=== PATIENT | male | born 1980 | race American Indian/Alaskan Native ===

== ENCOUNTER 2016-06-05 13:55 | Inpatient (IN) | payer SELFPAY ==
[2016-06-05] MEDS ORDERED: NACL 0.9% 500 ML 500 ML IV ONE (15:03)
[2016-06-05 16:07] LABS: INR 1.02 (0.87-1.13)
[2016-06-05 16:17] LABS: Hematocrit 47.2 % (35.5-45.6); Mean Corpuscular HGB Conc 32 % (32-34); Mean Corpuscular Hemoglobin 29 pg (28-32); Mean Corpuscular Volume 92 fl (84-94); Platelet Count 186 K/mm3 (140-440); Red Blood Count 5.12 M/mm3 (3.65-5.03); Red Cell Distribution Width 14.5 % (13.2-15.2); White Blood Count 11.9 K/mm3 (4.5-11.0)
--- NOTE | 2016-06-05 16:19 | XRay Report ---
PA CHEST: Sepsis PA view of the chest demonstrates a normal mediastinal and cardiac contour with clear lungs and normal bony and soft tissue structures. IMPRESSION: Normal PA chest.
[2016-06-05 16:26] LABS: Basophils % (Auto) 0.4 % (0.0-1.8)
[2016-06-05 16:35] LABS: Alanine Aminotransferase 18 units/L (7-56); Albumin 4.2 g/dL (3.9-5); Albumin/Globulin Ratio 1.2 %; Alkaline Phosphatase 59 units/L (35-129); Anion Gap 20 mmol/L; Blood Urea Nitrogen 17 mg/dL (9-20); Calcium 9.5 mg/dL (8.4-10.2); Carbon Dioxide 24 mmol/L (22-30); Glucose 174 mg/dL (75-100); Potassium 3.9 mmol/L (3.6-5.0); Sodium 138 mmol/L (137-145); Total Protein 7.8 g/dL (6.3-8.2)
[2016-06-05 20:09] LABS: Urine Drugs of Abuse Note Disclamer
[2016-06-05 20:32] LABS: Bacteria,Urine 1+ /HPF (Negative); Bilirubin,Urine NEG (Negative); Blood,Urine LG (Negative); Ketones,Urine 20 mg/dL (Negative); Leukocyte Esterase,Urine NEG (Negative); Mucus,Urine 3+ /HPF; Nitrite,Urine NEG (Negative); Urobilinogen,Urine < 2.0 mg/dL (<2.0); WBC,Urine < 1.0 /HPF (0.0-6.0)
--- NOTE | 2016-06-05 20:49 | Emergency Department Report ---
ED Psych HPI - General Chief Complaint: Psych Stated Complaint: AMRIK EVDANYELL Time Seen by Provider: 06/05/16 19:38 Source: patient Mode of arrival: Ambulatory Limitations: No Limitations - History of Present Illness Initial Comments: 35-year-old male presents to the emergency Department with family for psychiatric evaluation. states the patient has been having hallucinations for the past 3 days. Patient states that he feels like people are being mixed with robots than he just doesn't feel right. states patient is afraid people are trying to take his body parts away. states the patient was seen at another emergency department approximate 5 days ago for a toothache. He was started on penicillin, Motrin, and Percocet at that time. His current symptoms began after taking the Percocet. She states she stopped giving him the Percocet, but his symptoms have persisted. She states that the patient has had a similar episode of these symptoms in the past after taking dicyclomine for abdominal pain. Symptoms persisted for approximately 4 days after this medication was stopped. Patient denies suicidal or homicidal thoughts. There are no other complaints. -: Gradual, days(s) (3) Associated Psychiatric Symptoms: delusions History of same: No Quality: constant Improves With: none Worsens With: none Associated Symptoms: denies other symptoms Treatments Prior to Arrival: none - Related Data Allergies Allergy/AdvReac Type Severity Reaction Status Date / Time tramadol Allergy Unknown Verified 06/05/16 14:52 ED Review of Systems ROS: Stated complaint: AMRIK BARRIGA Other details as noted in HPI Comment: All other systems reviewed and negative Psychiatric: as per HPI. denies: homicidal thoughts, suicidal thoughts ED Past Medical Hx - Past Medical History Previous Medical History?: No - Surgical History Past Surgical History?: No - Family History Family history: other (bipolar, schizophrenia) - Social History Smoking Status: Current Every Day Smoker Substance Use Type: Marijuana, Prescribed ED Physical Exam - General Limitations: No Limitations General appearance: alert, in no apparent distress - Head Head exam: Present: atraumatic, normocephalic - Eye Eye exam: Present: normal appearance, PERRL, EOMI - ENT ENT exam: Present: normal exam, normal orophraynx, mucous membranes moist - Neck Neck exam: Present: normal inspection, full ROM. Absent: tenderness - Respiratory Respiratory exam: Present: normal lung sounds bilaterally. Absent: respiratory distress - Cardiovascular Cardiovascular Exam: Present: regular rate, normal rhythm, normal heart sounds - GI/Abdominal GI/Abdominal exam: Present: soft, normal bowel sounds. Absent: distended, tenderness - Extremities Exam Extremities exam: Present: normal inspection, full ROM. Absent: tenderness - Back Exam Back exam: Present: normal inspection, full ROM. Absent: tenderness - Neurological Exam Neurological exam: Present: alert, oriented X3. Absent: motor sensory deficit - Psychiatric Psychiatric exam: Present: normal affect, anxious, other (active paranoid delusions noted). Absent: homicidal ideation, suicidal ideation - Skin Skin exam: Present: warm, dry, intact ED Course Vital Signs 06/05/16 06/05/16 14:52 19:36 Temperature 100.5 F H 98.9 F Pulse Rate 113 H 92 H Respiratory 20 16 Rate Blood Pressure 142/96 Blood Pressure 130/96 [Right] O2 Sat by Pulse 100 100 Oximetry ED Medical Decision Making - Lab Data Result diagrams: 06/05/16 15:08 06/05/16 15:08 - Medical Decision Making Lab results reviewed. Patient has been medically cleared. Form 1013 has been signed and placed on the patient's chart. Patient is awaiting mental health evaluation for placement. - Differential Diagnosis Paranoid schizophrenia, bipolar disorder, psychosis Critical care attestation.: If time is entered above; I have spent that time in minutes in the direct care of this critically ill patient, excluding procedure time. ED Disposition Clinical Impression: Acute psychosis Disposition: DC/TX PSY HOSP/PSY UNIT Is pt being admited?: No Condition: Stable Referrals: PRIMARY CARE, [Primary Care Provider] - 3-5 Days Time of Disposition: 20:54
[2016-06-06] MEDS ORDERED: ROCEPHIN/NS 1 GM/50 ML 1 GM/50 ML BAG IV ONE ×2 (10:58→11:00)
[2016-06-06] MEDS ORDERED: NACL 0.9% 1000 ML 1,000 ML IV ONE (11:01)
[2016-06-06 11:47] LABS: Basophils % (Auto) 0.2 % (0.0-1.8); Eosinophils % (Auto) 0.1 % (0.0-4.3); Hematocrit 43.8 % (35.5-45.6); Hemoglobin 14.5 gm/dl (11.8-15.2); Mean Corpuscular HGB Conc 33 % (32-34); Mean Corpuscular Hemoglobin 30 pg (28-32); Mean Corpuscular Volume 89 fl (84-94); Platelet Count 239 K/mm3 (140-440); Red Blood Count 4.91 M/mm3 (3.65-5.03); Red Cell Distribution Width 14.3 % (13.2-15.2); White Blood Count 13.2 K/mm3 (4.5-11.0)
[2016-06-06 11:58] LABS: Alanine Aminotransferase 17 units/L (7-56); Albumin 4.2 g/dL (3.9-5); Albumin/Globulin Ratio 1.3 %; Alkaline Phosphatase 56 units/L (35-129); Anion Gap 18 mmol/L; Blood Urea Nitrogen 23 mg/dL (9-20); Calcium 9.6 mg/dL (8.4-10.2); Carbon Dioxide 27 mmol/L (22-30); Chloride 98.6 mmol/L (98-107); Glucose 110 mg/dL (75-100); INR 1.07 (0.87-1.13); Potassium 3.8 mmol/L (3.6-5.0); Sodium 140 mmol/L (137-145); Total Protein 7.4 g/dL (6.3-8.2)
[2016-06-06 11:59] LABS: Partial Thromboplastin Time 33.6 Sec. (24.2-36.6)
--- NOTE | 2016-06-06 12:01 | Cat Scan Report ---
CT HEAD WITHOUT CONTRAST: HISTORY: Fever, sepsis. Serial contiguous axial images were obtained through the cranium. Intravenous contrast material was not administered. The ventricles are normal in size and appearance. There is no mass effect or midline shift. No areas of abnormally increased or decreased attenuation are seen. No mass lesion is seen. Mucous retention cyst or focal mucosal thickening is noted in the visualized maxillary sinuses. The remaining sinuses are clear. IMPRESSION: Cranial CT scan within normal limits.
[2016-06-06 12:03] LABS: Bilirubin,Direct < 0.2 mg/dL (0-0.2); Bilirubin,Indirect 0.4 mg/dL
[2016-06-06 12:05] LABS: Creatine Kinase MB 1.8 ng/mL (0.0-4.0)
--- NOTE | 2016-06-06 13:20 | History and Physical Report ---
History of Present Illness Chief complaint: confusion History of present illness: 35 YO Male with Nicotine Dependence, Bipolar, Schizophrenia presents to ED for evaluation. Pt unable to provide history. History taken from , and ED staff. Pt states the patient has been having hallucinations for the past 3 days. Patient feels like "people are being mixed with robots than he just doesn 't feel right." states patient is "afraid people are trying to take his body parts away". Pt denies reports of fever, chills, CP, Palpitatons, NVD , syncope, recent ill contacts, productive cough, skin rashes, head trauma, seizures, or vertigo. Past History Past Medical History: other (Nicotine Dependence, Bipolar, Schizophrenia) Past Surgical History: No surgical history, Other (reviewed) Social history: single, smoking. denies: alcohol abuse, prescription drug abuse , IV drug use Family history: no significant family history (reviewed) Medications and Allergies Allergies Allergy/AdvReac Type Severity Reaction Status Date / Time tramadol Allergy Unknown Verified 06/05/16 14:52 Review of Systems ROS unobtainable: due to mental status Exam - Constitutional Vitals: Temp Pulse Resp BP Pulse Ox 98.9 F 92 H 16 130/96 100 06/05/16 19:36 06/05/16 19:36 06/06/16 07:17 06/05/16 19:36 06/05/16 19:36 General appearance: Present: mild distress - EENT Eyes: Present: PERRL ENT: hearing intact, clear oral mucosa - Neck Neck: Present: supple, normal ROM - Respiratory Respiratory: bilateral: diminished - Cardiovascular Rhythm: regular Heart Sounds: Present: S1 & S2 - Extremities Extremities: no ischemia Peripheral Pulses: within normal limits - Abdominal General gastrointestinal: Present: soft, non-tender, non-distended Male genitourinary: Present: normal - Integumentary Integumentary: Present: clear, dry, decreased turgor - Musculoskeletal Musculoskeletal: generalized weakness - Psychiatric Psychiatric: no intact judgment & insight, no memory intact - Neurologic Neurologic: moves all extremities, no gait normal Results - Labs CBC & Chem 7: 06/06/16 11:12 06/06/16 11:12 Labs: Abnormal lab results 06/05/16 06/05/16 06/06/16 Range/Units 15:08 15:08 11:12 WBC 11.9 H 13.2 H (4.5-11.0) K/mm3 RBC 5.12 H (3.65-5.03) M/mm3 Hct 47.2 H (35.5-45.6) % [place] % (Auto) 9.2 H 8.9 H (0.0-7.3) % [place] # 1.1 H 1.2 H (0.0-0.8) K/mm3 Seg Neutrophils % 74.6 H 74.8 H (40.0-70.0) % Seg Neutrophils # 8.9 H 9.9 H (1.8-7.7) K/mm3 BUN (9-20) mg/dL Glucose 174 H (75-100) mg/dL Total Creatine Kinase (55-170) units/L Salicylates (2.8-20.0) mg/dL 06/06/16 06/06/16 06/06/16 Range/Units 11:12 11:12 11:12 WBC (4.5-11.0) K/mm3 RBC (3.65-5.03) M/mm3 Hct (35.5-45.6) % [place] % (Auto) (0.0-7.3) % [place] # (0.0-0.8) K/mm3 Seg Neutrophils % (40.0-70.0) % Seg Neutrophils # (1.8-7.7) K/mm3 BUN 23 H (9-20) mg/dL Glucose 110 H (75-100) mg/dL Total Creatine Kinase 310 H (55-170) units/L Salicylates < 0.3 L (2.8-20.0) mg/dL Assessment and Plan - Patient Problems (1) Sepsis Current Visit: Yes Status: Acute Qualifiers: Sepsis type: S Plan to address problem: IV abx, IVF, supportive care, monitor uop q shift, serial lactate, (2) Encephalopathy Current Visit: Yes Status: Acute Plan to address problem: IVF replacement, supportive care. (3) Psychosis Current Visit: Yes Status: Acute Qualifiers: Psychosis type: P Schizoaffective disorder type: S Schizophrenia type: S Plan to address problem: Pych consulted, (4) Nicotine dependence Current Visit: Yes Status: Acute Qualifiers: Nicotine product type: N Substance use status: S Plan to address problem: supportive care. (5) DVT prophylaxis Current Visit: Yes Status: Acute
[2016-06-06] MEDS ORDERED: TYLENOL PO PRN (13:23)
[2016-06-06] MEDS ORDERED: DUONEB 0.5 MG-3 MG/3 ML SOLN IH PRN (13:23)
[2016-06-06] MEDS ORDERED: DULCOLAX PR PRN (13:23)
[2016-06-06] MEDS ORDERED: MILK OF MAGNESIA PO PRN (13:23)
[2016-06-06] MEDS ORDERED: ZOFRAN IV PRN (13:23)
[2016-06-06] MEDS ORDERED: NACL 0.9% 1000 ML IV ONE (13:25)
--- NOTE | 2016-06-06 13:48 | Emergency Department Report ---
ED General Adult HPI - General Chief complaint: Psych Stated complaint: AMRIK BARRIGA Time Seen by Provider: 06/05/16 19:38 Source: patient Mode of arrival: Ambulatory Limitations: No Limitations - History of Present Illness Initial comments: I was asked by Dr. Brandon will have psychiatry to reevaluate this patient. There was concern as to whether he was medically appropriate for psychiatric admission. The patient I believe is actively psychotic. However he presented with fever and had a workup performed. I reviewed the workup and I really didn' t see anything particularly outstanding other than a mildly elevated white blood cell count with some neutrophilia. I do see the patient had a fever on presentation. I reviewed Dr. Redd's note. -: unknown Severity scale (0 -10): 0 - Related Data Allergies Allergy/AdvReac Type Severity Reaction Status Date / Time tramadol Allergy Unknown Verified 06/05/16 14:52 ED Review of Systems ROS: Stated complaint: AMRIK HERNANDEZAL Other details as noted in HPI Comment: Unobtainable due to pts medical conditions Psychiatric: as per HPI. denies: homicidal thoughts, suicidal thoughts ED Past Medical Hx - Past Medical History Previous Medical History?: No - Surgical History Past Surgical History?: No - Social History Smoking Status: Current Every Day Smoker Substance Use Type: Marijuana, Prescribed ED Physical Exam - General Limitations: Altered Mental Status General appearance: obtunded - Head Head exam: Present: atraumatic - Eye Eye exam: Present: other (the patient was rolling his eyes Voluntarily.) Pupils: Present: other (pupils are about mid position reactive and equal) - ENT ENT exam: Present: other (there appears to be purulent material at the nares) - Neck Neck exam: Present: normal inspection. Absent: tenderness, meningismus - Respiratory Respiratory exam: Present: normal lung sounds bilaterally. Absent: respiratory distress - Cardiovascular Cardiovascular Exam: Present: regular rate, normal rhythm. Absent: systolic murmur, diastolic murmur, rubs, gallop - GI/Abdominal GI/Abdominal exam: Present: soft, normal bowel sounds. Absent: distended, tenderness, guarding, rebound, rigid - Extremities Exam Extremities exam: Present: normal inspection - Back Exam Back exam: Present: normal inspection - Neurological Exam Neurological exam: Present: altered, other (no focal deficit on limited neurological exam) ED Course Vital Signs 06/05/16 06/05/16 06/06/16 14:52 19:36 07:17 Temperature 100.5 F H 98.9 F Pulse Rate 113 H 92 H Respiratory 20 16 16 Rate Blood Pressure 142/96 Blood Pressure 130/96 [Right] O2 Sat by Pulse 100 100 Oximetry - Reevaluation(s) Reevaluation #1: The patient was given 2 g of ceftriaxone empirically. A CT of the head was obtained which demonstrated findings consistent with maxillary sinusitis I believe. There was no other intracranial abnormality. Additional laboratory database was reviewed. 06/06/16 13:48 Reevaluation #2: I spoke with Dr. Camargo concerning any desire for further source of infection served. Repeat laboratory database does show an elevated white blood cell count but CRP was normal and no bands were seen. The anion gap remains normal. The patient had no evidence of lactic acidosis. Dr. Camargo decided to forego lumbar puncture as the indicators for serious or life-threatening infection appear to be negative. It is likely the patient's altered status is secondary to his acute psychosis. However, empiric antibiotics will be continued. 06/06/16 13:48 ED Medical Decision Making - Lab Data Result diagrams: 06/06/16 11:12 06/06/16 11:12 Laboratory Results - last 24 hr 06/05/16 06/05/16 06/05/16 15:08 15:08 15:08 WBC RBC Hgb Hct MCV MCH MCHC RDW Plt Count Lymph % (Auto) [place] % (Auto) Eos % (Auto) Baso % (Auto) Lymph # [place] # Eos # Baso # Seg Neutrophils % Seg Neutrophils # PT 13.3 INR 1.02 APTT VBG pH Sodium 138 Potassium 3.9 Chloride 98.0 Carbon Dioxide 24 Anion Gap 20 BUN 17 Creatinine 1.0 Estimated GFR > 60 BUN/Creatinine Ratio 17.00 Glucose 174 H Lactic Acid 1.5 Calcium 9.5 Magnesium Total Bilirubin 0.40 Direct Bilirubin Indirect Bilirubin AST 18 ALT 18 Alkaline Phosphatase 59 Ammonia Total Creatine Kinase CK-MB (CK-2) CK-MB (CK-2) Rel Index Troponin T C-Reactive Protein Total Protein 7.8 Albumin 4.2 Albumin/Globulin Ratio 1.2 Urine Color Urine Turbidity Urine pH Ur Specific [place] Urine Protein Urine Glucose (UA) Urine Ketones Urine Blood Urine Nitrite Urine Bilirubin Urine Urobilinogen Ur Leukocyte Esterase Urine WBC (Auto) Urine RBC (Auto) Urine Bacteria (Auto) Urine Mucus Salicylates Urine Opiates Screen Urine Methadone Screen Acetaminophen Ur Barbiturates Screen Ur Phencyclidine Scrn Ur Amphetamines Screen U Benzodiazepines Scrn Urine Cocaine Screen U Marijuana (THC) Screen Drugs of Abuse Note Plasma/Serum Alcohol 06/05/16 06/05/16 06/05/16 15:08 15:08 15:08 WBC 11.9 H RBC 5.12 H Hgb 15.0 Hct 47.2 H MCV 92 MCH 29 MCHC 32 RDW 14.5 Plt Count 186 Lymph % (Auto) 15.8 [place] % (Auto) 9.2 H Eos % (Auto) 0.0 Baso % (Auto) 0.4 Lymph # 1.9 [place] # 1.1 H Eos # 0.0 Baso # 0.1 Seg Neutrophils % 74.6 H Seg Neutrophils # 8.9 H PT INR APTT VBG pH 7.370 Sodium Potassium Chloride Carbon Dioxide Anion Gap BUN Creatinine Estimated GFR BUN/Creatinine Ratio Glucose Lactic Acid Calcium Magnesium Total Bilirubin Direct Bilirubin Indirect Bilirubin AST ALT Alkaline Phosphatase Ammonia Total Creatine Kinase CK-MB (CK-2) CK-MB (CK-2) Rel Index Troponin T C-Reactive Protein Total Protein Albumin Albumin/Globulin Ratio Urine Color Urine Turbidity Urine pH Ur Specific [place] Urine Protein Urine Glucose (UA) Urine Ketones Urine Blood Urine Nitrite Urine Bilirubin Urine Urobilinogen Ur Leukocyte Esterase Urine WBC (Auto) Urine RBC (Auto) Urine Bacteria (Auto) Urine Mucus Salicylates Urine Opiates Screen Urine Methadone Screen Acetaminophen Ur Barbiturates Screen Ur Phencyclidine Scrn Ur Amphetamines Screen U Benzodiazepines Scrn Urine Cocaine Screen U Marijuana (THC) Screen Drugs of Abuse Note Plasma/Serum Alcohol < 0.01 06/05/16 06/05/16 06/05/16 17:51 20:07 20:07 WBC RBC Hgb Hct MCV MCH MCHC RDW Plt Count Lymph % (Auto) [place] % (Auto) Eos % (Auto) Baso % (Auto) Lymph # [place] # Eos # Baso # Seg Neutrophils % Seg Neutrophils # PT INR APTT VBG pH Sodium Potassium Chloride Carbon Dioxide Anion Gap BUN Creatinine Estimated GFR BUN/Creatinine Ratio Glucose Lactic Acid 1.0 Calcium Magnesium Total Bilirubin Direct Bilirubin Indirect Bilirubin AST ALT Alkaline Phosphatase Ammonia Total Creatine Kinase CK-MB (CK-2) CK-MB (CK-2) Rel Index Troponin T C-Reactive Protein Total Protein Albumin Albumin/Globulin Ratio Urine Color Yellow Urine Turbidity Clear Urine pH 5.0 Ur Specific [place] 1.027 Urine Protein 30 mg/dl Urine Glucose (UA) Neg Urine Ketones 20 Urine Blood Lg Urine Nitrite Neg Urine Bilirubin Neg Urine Urobilinogen < 2.0 Ur Leukocyte Esterase Neg Urine WBC (Auto) < 1.0 Urine RBC (Auto) 4.0 Urine Bacteria (Auto) 1+ Urine Mucus 3+ Salicylates Urine Opiates Screen Presumptive negative Urine Methadone Screen Presumptive negative Acetaminophen Ur Barbiturates Screen Presumptive negative Ur Phencyclidine Scrn Presumptive negative Ur Amphetamines Screen Presumptive negative U Benzodiazepines Scrn Presumptive positive Urine Cocaine Screen Presumptive negative U Marijuana (THC) Screen Presumptive positive Drugs of Abuse Note Disclamer Plasma/Serum Alcohol 06/06/16 06/06/16 06/06/16 11:12 11:12 11:12 WBC 13.2 H RBC 4.91 Hgb 14.5 Hct 43.8 MCV 89 D MCH 30 MCHC 33 RDW 14.3 Plt Count 239 Lymph % (Auto) 16.0 [place] % (Auto) 8.9 H Eos % (Auto) 0.1 Baso % (Auto) 0.2 Lymph # 2.1 [place] # 1.2 H Eos # 0.0 Baso # 0.0 Seg Neutrophils % 74.8 H Seg Neutrophils # 9.9 H PT 13.8 INR 1.07 APTT 33.6 VBG pH Sodium 140 Potassium 3.8 Chloride 98.6 Carbon Dioxide 27 Anion Gap 18 BUN 23 H Creatinine 1.0 Estimated GFR > 60 BUN/Creatinine Ratio 23.00 Glucose 110 H Lactic Acid Calcium 9.6 Magnesium Total Bilirubin 0.60 Direct Bilirubin < 0.2 Indirect Bilirubin 0.4 AST 17 ALT 17 Alkaline Phosphatase 56 Ammonia Total Creatine Kinase CK-MB (CK-2) CK-MB (CK-2) Rel Index Troponin T < 0.010 C-Reactive Protein 0.60 Total Protein 7.4 Albumin 4.2 Albumin/Globulin Ratio 1.3 Urine Color Urine Turbidity Urine pH Ur Specific [place] Urine Protein Urine Glucose (UA) Urine Ketones Urine Blood Urine Nitrite Urine Bilirubin Urine Urobilinogen Ur Leukocyte Esterase Urine WBC (Auto) Urine RBC (Auto) Urine Bacteria (Auto) Urine Mucus Salicylates Urine Opiates Screen Urine Methadone Screen Acetaminophen Ur Barbiturates Screen Ur Phencyclidine Scrn Ur Amphetamines Screen U Benzodiazepines Scrn Urine Cocaine Screen U Marijuana (THC) Screen Drugs of Abuse Note Plasma/Serum Alcohol 06/06/16 06/06/16 06/06/16 11:12 11:12 11:12 WBC RBC Hgb Hct MCV MCH MCHC RDW Plt Count Lymph % (Auto) [place] % (Auto) Eos % (Auto) Baso % (Auto) Lymph # [place] # Eos # Baso # Seg Neutrophils % Seg Neutrophils # PT INR APTT VBG pH Sodium Potassium Chloride Carbon Dioxide Anion Gap BUN Creatinine Estimated GFR BUN/Creatinine Ratio Glucose Lactic Acid 1.1 Calcium Magnesium 2.10 Total Bilirubin Direct Bilirubin Indirect Bilirubin AST ALT Alkaline Phosphatase Ammonia Total Creatine Kinase 310 H CK-MB (CK-2) 1.8 CK-MB (CK-2) Rel Index 0.5 Troponin T C-Reactive Protein Total Protein Albumin Albumin/Globulin Ratio Urine Color Urine Turbidity Urine pH Ur Specific [place] Urine Protein Urine Glucose (UA) Urine Ketones Urine Blood Urine Nitrite Urine Bilirubin Urine Urobilinogen Ur Leukocyte Esterase Urine WBC (Auto) Urine RBC (Auto) Urine Bacteria (Auto) Urine Mucus Salicylates Urine Opiates Screen Urine Methadone Screen Acetaminophen Ur Barbiturates Screen Ur Phencyclidine Scrn Ur Amphetamines Screen U Benzodiazepines Scrn Urine Cocaine Screen U Marijuana (THC) Screen Drugs of Abuse Note Plasma/Serum Alcohol 06/06/16 06/06/16 06/06/16 11:12 11:12 11:12 WBC RBC Hgb Hct MCV MCH MCHC RDW Plt Count Lymph % (Auto) [place] % (Auto) Eos % (Auto) Baso % (Auto) Lymph # [place] # Eos # Baso # Seg Neutrophils % Seg Neutrophils # PT INR APTT VBG pH Sodium Potassium Chloride Carbon Dioxide Anion Gap BUN Creatinine Estimated GFR BUN/Creatinine Ratio Glucose Lactic Acid Calcium Magnesium Total Bilirubin Direct Bilirubin Indirect Bilirubin AST ALT Alkaline Phosphatase Ammonia 34.0 Total Creatine Kinase CK-MB (CK-2) CK-MB (CK-2) Rel Index Troponin T C-Reactive Protein Total Protein Albumin Albumin/Globulin Ratio Urine Color Urine Turbidity Urine pH Ur Specific [place] Urine Protein Urine Glucose (UA) Urine Ketones Urine Blood Urine Nitrite Urine Bilirubin Urine Urobilinogen Ur Leukocyte Esterase Urine WBC (Auto) Urine RBC (Auto) Urine Bacteria (Auto) Urine Mucus Salicylates < 0.3 L Urine Opiates Screen Urine Methadone Screen Acetaminophen < 15.0 Ur Barbiturates Screen Ur Phencyclidine Scrn Ur Amphetamines Screen U Benzodiazepines Scrn Urine Cocaine Screen U Marijuana (THC) Screen Drugs of Abuse Note Plasma/Serum Alcohol Critical Care Time: Yes Critical care time in (mins) excluding proc time.: 35 Critical care attestation.: If time is entered above; I have spent that time in minutes in the direct care of this critically ill patient, excluding procedure time. ED Disposition Clinical Impression: Febrile illness, acute, Acute psychosis Altered mental status Qualifiers: Altered mental status type: delirium Qualified Code(s): R41.0 - Disorientation , unspecified Acute sinusitis Qualifiers: Sinusitis location: maxillary Recurrence: not specified as recurrent Qualified Code(s): J01.00 - Acute maxillary sinusitis, unspecified Disposition: OP ADMITTED IP TO THIS HOSP Is pt being admited?: Yes Does the pt Need Aspirin: Yes Condition: Stable Referrals: PRIMARY CARE, [Primary Care Provider] - 3-5 Days Time of Disposition: 13:52
[2016-06-06] MEDS ORDERED: ASPIRIN PR ONE ×2 (13:52→19:39)
[2016-06-06] MEDS ORDERED: NACL 0.9% 1000 ML 1,000 ML IV SCH (14:00)
[2016-06-06] MEDS ORDERED: VANCOMYCIN PHARMACY TO DOSE IV SCH (14:00)
[2016-06-06] MEDS ORDERED: PROVENTIL IH PRN (14:00)
[2016-06-06] MEDS ORDERED: VANCOMYCIN VIAL 1,500 MG in NACL 0.9% 500 ML 500 ML IV ONE (14:00)
[2016-06-06] MEDS: ZOSYN/NS 4.5GM/100ML 4.5 GM/100 ML VIAL IV SCH (19:05)
[2016-06-06] MEDS ORDERED: ZOSYN/NS 4.5GM/100ML 4.5 GM/100 ML VIAL IV ONE (19:38)
[2016-06-06] MEDS ORDERED: LEVAQUIN 750MG/150ML 750 MG/150 ML BAG IV ONE (19:46)
[2016-06-06] MEDS: LEVAQUIN 750MG/150ML 750 MG/150 ML BAG IV SCH (20:00)
[2016-06-07] MEDS: ZOSYN/NS 4.5GM/100ML 4.5 GM/100 ML VIAL IV SCH ×4 (01:12→17:55)
--- NOTE | 2016-06-07 03:56 | Admit Criteria Form ---
Admission Criteria Documentation: SEPSIS and OTHER FEBRILE ILLNESS, W/O FOCAL INFECTION Clinical Indications for Admission to Inpatient Care ( Place 'X' for any and all applicable criteria): Admission is indicated for ANY ONE of the following (1)(2)(3)(4): [ ] I. Bacteremia [ ]II. Suspected or identified specific infection requiring hospitalization (eg, meningitis, endocarditis) [ ]III. Hemodynamic instability [ ]IV. Altered mental status [ ]V. Failure or unavailability of outpatient antimicrobial treatment [ ]. Hypoxemia [ ]VII. Seizures [ ]VIII. High-risk febrile neutropenia [ ]IX. Need for parenteral antibiotic in patient who is likely to abuse vascular access device (eg, injection drug user) [A](7) [ ]X. Temperature greater than 104.9 degrees F (40.5 degrees C) (oral) [ X]XI. Inpatient admission required rather than observation care because of ANY ONE of the following: [ ]1) Specific infection identified that is too severe for outpatient treatment or observation care trial [ ]2) Metabolic disorder (eg, hypoglycemia, hyperglycemia, metabolic acidosis) that is severe or persistent [ ]3) Temperature greater than 103.1 degrees F (39.5 degrees C) ( oral) that is not responsive to observation care treatment [ ]4) IV fluid to replace significant ongoing (eg, for over 24 hours) losses (> 3 L/m2 per day) [ ]5) Supplemental oxygen or respiratory treatments for over 24 hours that is performable only in acute inpatient setting [ ]6) Parenteral nutrition regimen need that must be implemented on inpatient basis [ ]7) Strict or protective (eg, laminar flow) isolation [X ]8) Other condition, treatment or monitoring requiring inpatient admission Extended stay beyond goal length of stay may be needed for(1)(3) [ ]a) Sepsis or septic shock(22) [ ]b) Positive blood cultures [ ]c) Insufficient oral intake [ ]d) High-risk febrile neutropenia(29)(30) [ ]e) Continued fever and clinical instability [ ]f) Clinically active comorbid illness (e.g,heart failure, renal failure , diabetes) The original [facility] [employer] content created by Jennifer Anand has been revised. The portions of the content which have been revised are identified through the use of italic text or in bold, and Jennifer Anand has neither reviewed nor approved the modified material. All other unmodified content is copyright [facility]. Please see references footnoted in the original [facility] edition 2016 Admission Criteria Met: Yes
[2016-06-07] MEDS: HABITROL TD SCH (09:46)
[2016-06-07] MEDS: LEVAQUIN 750MG/150ML 750 MG/150 ML BAG IV SCH (09:46)
--- NOTE | 2016-06-07 09:52 | Progress Note ---
Assessment and Plan Assessment and plan: Patient is a 35-year-old man with history of tobacco dependency, bipolar and schizophrenia who presents to emergency department with altered mental status. Patient was waiting for mental health evaluation but he was having fevers and elevated white blood cell count therefore he was admitted to the hospital for possible sepsis. There is a prior history of patient being giving antibiotics for a tooth infection 5 days ago at another emergency department. Chest x-ray is negative. CT head unremarkable. -Sepsis most likely due to oral abscess from tooth infection: continue antibiotics, IV antibiotics -Acute encephalopathy due to above -Nausea and vomiting: Nothing by mouth and check abdominal x-ray -Bipolar and schizophrenia by history, chronic and worsenin, will need inpatient psych at discharge History Interval history: Patient seen and examined. Follow up on altered mental status which is still present. Overnight uneventful. No cp, sob, +n/v. Imaging, old records, testing, labs, nursing notes reviewed. Hospitalist Physical - Physical exam Narrative exam: GEN: Ill-appearing toxic diaphoretic but no respiratory distress, awake eyes closed and not talking HEENT: NCAT, patient resists eye exam NECK: SUPPLE, NO THYROMEGALY, NO JVD, NO LAD CVS: Regular tachycardia NORMAL S1S2 LUNGS/CHEST: CTA B, NORMAL CHEST EXPANSION B, GOOD AIR ENTRY B ABD: SOFT NTND, GBS, NO REBOUND OR GUARDING EXT/SKIN: NO SIGNIFICANT EDEMA OR RASH MSK: FROM X 4 EXTREMITIES NEURO: CN 2-12 GROSSLY INTACT, NO new FOCAL DEFICITS PSY: Confused - Constitutional Vitals: Temp Pulse Resp BP Pulse Ox 100.4 F H 70 18 126/76 98 06/07/16 07:37 06/07/16 07:37 06/07/16 07:37 06/07/16 07:37 06/07/16 07:37 Results - Labs CBC & Chem 7: 06/06/16 11:12 06/06/16 11:12 Labs: Laboratory Last Values WBC 13.2 K/mm3 (4.5-11.0) H 06/06/16 11:12 RBC 4.91 M/mm3 (3.65-5.03) 06/06/16 11:12 Hgb 14.5 gm/dl (11.8-15.2) 06/06/16 11:12 Hct 43.8 % (35.5-45.6) 06/06/16 11:12 MCV 89 fl (84-94) D 06/06/16 11:12 MCH 30 pg (28-32) 06/06/16 11:12 MCHC 33 % (32-34) 06/06/16 11:12 RDW 14.3 % (13.2-15.2) 06/06/16 11:12 Plt Count 239 K/mm3 (140-440) 06/06/16 11:12 Lymph % (Auto) 16.0 % (13.4-35.0) 06/06/16 11:12 [place] % (Auto) 8.9 % (0.0-7.3) H 06/06/16 11:12 Eos % (Auto) 0.1 % (0.0-4.3) 06/06/16 11:12 Baso % (Auto) 0.2 % (0.0-1.8) 06/06/16 11:12 Lymph # 2.1 K/mm3 (1.2-5.4) 06/06/16 11:12 [place] # 1.2 K/mm3 (0.0-0.8) H 06/06/16 11:12 Eos # 0.0 K/mm3 (0.0-0.4) 06/06/16 11:12 Baso # 0.0 K/mm3 (0.0-0.1) 06/06/16 11:12 Seg Neutrophils % 74.8 % (40.0-70.0) H 06/06/16 11:12 Seg Neutrophils # 9.9 K/mm3 (1.8-7.7) H 06/06/16 11:12 PT 13.8 Sec. (12.2-14.9) 06/06/16 11:12 INR 1.07 (0.87-1.13) 06/06/16 11:12 APTT 33.6 Sec. (24.2-36.6) 06/06/16 11:12 VBG pH 7.370 (7.320-7.420) 06/05/16 15:08 Sodium 140 mmol/L (137-145) 06/06/16 11:12 Potassium 3.8 mmol/L (3.6-5.0) 06/06/16 11:12 Chloride 98.6 mmol/L (98-107) 06/06/16 11:12 Carbon Dioxide 27 mmol/L (22-30) 06/06/16 11:12 Anion Gap 18 mmol/L 06/06/16 11:12 BUN 23 mg/dL (9-20) H 06/06/16 11:12 Creatinine 1.0 mg/dL (0.8-1.5) 06/06/16 11:12 Estimated GFR > 60 ml/min 06/06/16 11:12 BUN/Creatinine Ratio 23.00 % 06/06/16 11:12 Glucose 110 mg/dL (75-100) H 06/06/16 11:12 POC Glucose 101 (70-105) 06/06/16 22:13 Lactic Acid 1.1 mmol/L (0.7-2.0) 06/06/16 11:12 Calcium 9.6 mg/dL (8.4-10.2) 06/06/16 11:12 Magnesium 2.10 mg/dL (1.7-2.3) 06/06/16 11:12 Total Bilirubin 0.60 mg/dL (0.1-1.2) 06/06/16 11:12 Direct Bilirubin < 0.2 mg/dL (0-0.2) 06/06/16 11:12 Indirect Bilirubin 0.4 mg/dL 06/06/16 11:12 AST 17 units/L (5-40) 06/06/16 11:12 ALT 17 units/L (7-56) 06/06/16 11:12 Alkaline Phosphatase 56 units/L (35-129) 06/06/16 11:12 Ammonia 34.0 umol/L (25-60) 06/06/16 11:12 Total Creatine Kinase 310 units/L (55-170) H 06/06/16 11:12 CK-MB (CK-2) 1.8 ng/mL (0.0-4.0) 06/06/16 11:12 CK-MB (CK-2) Rel Index 0.5 (0-4) 06/06/16 11:12 Troponin T < 0.010 ng/mL (0.00-0.029) 06/06/16 11:12 C-Reactive Protein 0.60 mg/dL (0.00-1.30) 06/06/16 11:12 Total Protein 7.4 g/dL (6.3-8.2) 06/06/16 11:12 Albumin 4.2 g/dL (3.9-5) 06/06/16 11:12 Albumin/Globulin Ratio 1.3 % 06/06/16 11:12 Urine Color Yellow (Yellow) 06/05/16 20:07 Urine Turbidity Clear (Clear) 06/05/16 20:07 Urine pH 5.0 (5.0-7.0) 06/05/16 20:07 Ur Specific [place] 1.027 (1.003-1.030) 06/05/16 20:07 Urine Protein 30 mg/dl mg/dL (Negative) 06/05/16 20:07 Urine Glucose (UA) Neg mg/dL (Negative) 06/05/16 20:07 Urine Ketones 20 mg/dL (Negative) 06/05/16 20:07 Urine Blood Lg (Negative) 06/05/16 20:07 Urine Nitrite Neg (Negative) 06/05/16 20:07 Urine Bilirubin Neg (Negative) 06/05/16 20:07 Urine Urobilinogen < 2.0 mg/dL (<2.0) 06/05/16 20:07 Ur Leukocyte Esterase Neg (Negative) 06/05/16 20:07 Urine WBC (Auto) < 1.0 /HPF (0.0-6.0) 06/05/16 20:07 Urine RBC (Auto) 4.0 /HPF (0.0-6.0) 06/05/16 20:07 Urine Bacteria (Auto) 1+ /HPF (Negative) 06/05/16 20:07 Urine Mucus 3+ /HPF 06/05/16 20:07 Salicylates < 0.3 mg/dL (2.8-20.0) L 06/06/16 11:12 Urine Opiates Screen Presumptive negative 06/05/16 20:07 Urine Methadone Screen Presumptive negative 06/05/16 20:07 Acetaminophen < 15.0 ug/mL (10.0-30.0) 06/06/16 11:12 Ur Barbiturates Screen Presumptive negative 06/05/16 20:07 Ur Phencyclidine Scrn Presumptive negative 06/05/16 20:07 Ur Amphetamines Screen Presumptive negative 06/05/16 20:07 U Benzodiazepines Scrn Presumptive positive 06/05/16 20:07 Urine Cocaine Screen Presumptive negative 06/05/16 20:07 U Marijuana (THC) Screen Presumptive positive 06/05/16 20:07 Drugs of Abuse Note Disclamer 06/05/16 20:07 Plasma/Serum Alcohol < 0.01 gm% (0-0.07) 06/05/16 15:08
[2016-06-07] MEDS ORDERED: ZOFRAN IV PRN (09:54)
--- NOTE | 2016-06-07 10:52 | XRay Report ---
KUB: 06/07/16 09:54:00 CLINICAL: Nausea and vomiting. FINDINGS: Normal bowel gas pattern. No distended bowel and no air-fluid levels. No mass or suspicious calcifications. No pneumoperitoneum. Moderate arthritis of the hips. IMPRESSION: Negative abdomen.
[2016-06-07] MEDS: VANCOMYCIN 1,250 MG in NACL 0.9% 250ML 250 ML IV SCH ×2 (12:22→17:55)
[2016-06-08] MEDS: ZOSYN/NS 4.5GM/100ML 4.5 GM/100 ML VIAL IV SCH ×4 (00:30→18:52)
[2016-06-08] MEDS: VANCOMYCIN 1,250 MG in NACL 0.9% 250ML 250 ML IV SCH ×2 (02:00→14:29)
[2016-06-08] MEDS: HABITROL TD SCH (10:04)
--- NOTE | 2016-06-08 14:55 | Progress Note ---
Assessment and Plan Assessment and plan: Patient is a 35-year-old man with history of tobacco dependency, bipolar and schizophrenia who presents to emergency department with altered mental status. Patient was waiting for mental health evaluation but he was having fevers and elevated white blood cell count therefore he was admitted to the hospital for possible sepsis. There is a prior history of patient being giving antibiotics for a tooth infection 5 days ago at another emergency department. Chest x-ray is negative. CT head unremarkable. -Sepsis most likely due to oral abscess from tooth infection: continue antibiotics, IV antibiotics, ivf -Acute encephalopathy due to above -Nausea and vomiting: Nothing by mouth and check abdominal x-ray -Bipolar and schizophrenia by history, chronic and worsenin, will need inpatient psych at discharge -DVT prophylaxis; add sq lovenox -Disposition: inpt psych once afebrile and culture resulted Blood culture +1/2 bottle, gp cocci in clusters, await final results, repeated blood culture today, continue iv vanc and iv zosyn Ordered am labs History Interval history: Patient seen and examined. Follow up on altered mental status which is still present. Overnight uneventful. No cp, sob, +n/v. Imaging, old records, testing, labs, nursing notes reviewed. and father at bedside. Hospitalist Physical - Physical exam Narrative exam: GEN: illappearing, not diaphoretic today, nad awake alert orientated x 2 HEENT: NCAT, patient resists eye exam NECK: SUPPLE, NO THYROMEGALY, NO JVD, NO LAD CVS: Regular tachycardia NORMAL S1S2 LUNGS/CHEST: CTA B, NORMAL CHEST EXPANSION B, GOOD AIR ENTRY B ABD: SOFT NTND, GBS, NO REBOUND OR GUARDING EXT/SKIN: NO SIGNIFICANT EDEMA OR RASH MSK: FROM X 4 EXTREMITIES NEURO: CN 2-12 GROSSLY INTACT, NO new FOCAL DEFICITS, resting and intention whole body chills PSY: anxious - Constitutional Vitals: Temp Pulse Resp BP Pulse Ox 100.8 F H 90 20 130/76 96 06/08/16 12:42 06/08/16 12:42 06/08/16 12:42 06/08/16 12:42 06/08/16 12:42 Results - Labs CBC & Chem 7: 06/06/16 11:12 06/06/16 11:12 Labs: Laboratory Last Values WBC 13.2 K/mm3 (4.5-11.0) H 06/06/16 11:12 RBC 4.91 M/mm3 (3.65-5.03) 06/06/16 11:12 Hgb 14.5 gm/dl (11.8-15.2) 06/06/16 11:12 Hct 43.8 % (35.5-45.6) 06/06/16 11:12 MCV 89 fl (84-94) D 06/06/16 11:12 MCH 30 pg (28-32) 06/06/16 11:12 MCHC 33 % (32-34) 06/06/16 11:12 RDW 14.3 % (13.2-15.2) 06/06/16 11:12 Plt Count 239 K/mm3 (140-440) 06/06/16 11:12 Lymph % (Auto) 16.0 % (13.4-35.0) 06/06/16 11:12 [place] % (Auto) 8.9 % (0.0-7.3) H 06/06/16 11:12 Eos % (Auto) 0.1 % (0.0-4.3) 06/06/16 11:12 Baso % (Auto) 0.2 % (0.0-1.8) 06/06/16 11:12 Lymph # 2.1 K/mm3 (1.2-5.4) 06/06/16 11:12 [place] # 1.2 K/mm3 (0.0-0.8) H 06/06/16 11:12 Eos # 0.0 K/mm3 (0.0-0.4) 06/06/16 11:12 Baso # 0.0 K/mm3 (0.0-0.1) 06/06/16 11:12 Seg Neutrophils % 74.8 % (40.0-70.0) H 06/06/16 11:12 Seg Neutrophils # 9.9 K/mm3 (1.8-7.7) H 06/06/16 11:12 PT 13.8 Sec. (12.2-14.9) 06/06/16 11:12 INR 1.07 (0.87-1.13) 06/06/16 11:12 APTT 33.6 Sec. (24.2-36.6) 06/06/16 11:12 VBG pH 7.370 (7.320-7.420) 06/05/16 15:08 Sodium 140 mmol/L (137-145) 06/06/16 11:12 Potassium 3.8 mmol/L (3.6-5.0) 06/06/16 11:12 Chloride 98.6 mmol/L (98-107) 06/06/16 11:12 Carbon Dioxide 27 mmol/L (22-30) 06/06/16 11:12 Anion Gap 18 mmol/L 06/06/16 11:12 BUN 23 mg/dL (9-20) H 06/06/16 11:12 Creatinine 1.0 mg/dL (0.8-1.5) 06/06/16 11:12 Estimated GFR > 60 ml/min 06/06/16 11:12 BUN/Creatinine Ratio 23.00 % 06/06/16 11:12 Glucose 110 mg/dL (75-100) H 06/06/16 11:12 POC Glucose 101 (70-105) 06/06/16 22:13 Lactic Acid 1.1 mmol/L (0.7-2.0) 06/06/16 11:12 Calcium 9.6 mg/dL (8.4-10.2) 06/06/16 11:12 Magnesium 2.10 mg/dL (1.7-2.3) 06/06/16 11:12 Total Bilirubin 0.60 mg/dL (0.1-1.2) 06/06/16 11:12 Direct Bilirubin < 0.2 mg/dL (0-0.2) 06/06/16 11:12 Indirect Bilirubin 0.4 mg/dL 06/06/16 11:12 AST 17 units/L (5-40) 06/06/16 11:12 ALT 17 units/L (7-56) 06/06/16 11:12 Alkaline Phosphatase 56 units/L (35-129) 06/06/16 11:12 Ammonia 34.0 umol/L (25-60) 06/06/16 11:12 Total Creatine Kinase 310 units/L (55-170) H 06/06/16 11:12 CK-MB (CK-2) 1.8 ng/mL (0.0-4.0) 06/06/16 11:12 CK-MB (CK-2) Rel Index 0.5 (0-4) 06/06/16 11:12 Troponin T < 0.010 ng/mL (0.00-0.029) 06/06/16 11:12 C-Reactive Protein 0.60 mg/dL (0.00-1.30) 06/06/16 11:12 Total Protein 7.4 g/dL (6.3-8.2) 06/06/16 11:12 Albumin 4.2 g/dL (3.9-5) 06/06/16 11:12 Albumin/Globulin Ratio 1.3 % 06/06/16 11:12 Urine Color Yellow (Yellow) 06/05/16 20:07 Urine Turbidity Clear (Clear) 06/05/16 20:07 Urine pH 5.0 (5.0-7.0) 06/05/16 20:07 Ur Specific [place] 1.027 (1.003-1.030) 06/05/16 20:07 Urine Protein 30 mg/dl mg/dL (Negative) 06/05/16 20:07 Urine Glucose (UA) Neg mg/dL (Negative) 06/05/16 20:07 Urine Ketones 20 mg/dL (Negative) 06/05/16 20:07 Urine Blood Lg (Negative) 06/05/16 20:07 Urine Nitrite Neg (Negative) 06/05/16 20:07 Urine Bilirubin Neg (Negative) 06/05/16 20:07 Urine Urobilinogen < 2.0 mg/dL (<2.0) 06/05/16 20:07 Ur Leukocyte Esterase Neg (Negative) 06/05/16 20:07 Urine WBC (Auto) < 1.0 /HPF (0.0-6.0) 06/05/16 20:07 Urine RBC (Auto) 4.0 /HPF (0.0-6.0) 06/05/16 20:07 Urine Bacteria (Auto) 1+ /HPF (Negative) 06/05/16 20:07 Urine Mucus 3+ /HPF 06/05/16 20:07 Vancomycin Trough 2.3 ug/mL (5.0-20.0) L 06/08/16 11:17 Salicylates < 0.3 mg/dL (2.8-20.0) L 06/06/16 11:12 Urine Opiates Screen Presumptive negative 06/05/16 20:07 Urine Methadone Screen Presumptive negative 06/05/16 20:07 Acetaminophen < 15.0 ug/mL (10.0-30.0) 06/06/16 11:12 Ur Barbiturates Screen Presumptive negative 06/05/16 20:07 Ur Phencyclidine Scrn Presumptive negative 06/05/16 20:07 Ur Amphetamines Screen Presumptive negative 06/05/16 20:07 U Benzodiazepines Scrn Presumptive positive 06/05/16 20:07 Urine Cocaine Screen Presumptive negative 06/05/16 20:07 U Marijuana (THC) Screen Presumptive positive 06/05/16 20:07 Drugs of Abuse Note Disclamer 06/05/16 20:07 Plasma/Serum Alcohol < 0.01 gm% (0-0.07) 06/05/16 15:08
--- NOTE | 2016-06-08 18:32 | Consultation ---
History of Present Illness - Reason for Consult Consult date: 06/08/16 Reason for consult: Mental Health Evaluation Requesting physician: BUSHRA IYER - Chief Complaint Chief complaint: "My tooth feel better" - History of Present Psychiatric Illness 35-year-old male presents to the emergency Department with family for psychiatric evaluation. His girlfriend states the patient has been having hallucinations for the past 3 days. Today patient is calm and cooperative during assessment. He stated along with his girlfriend that his tooth has been giving him problems for a year. Per his girlfriend, patient was hearing voices and talking to the wall at their home before his admission to [facility]. His medical diagnosis was sepsis once he was admitted. After receiving IV antibiotic treatment, patient presentation improved per his girlfriend. He denies SI/HI's, AVH's, depression, sleep disturbance or a poor appetite. Medications and Allergies Allergies Allergy/AdvReac Type Severity Reaction Status Date / Time dyclonine Allergy Unknown Verified 06/07/16 06:38 tramadol Allergy Unknown Verified 06/05/16 14:52 Home Medications Medication Instructions Recorded Confirmed Last Taken Type No Known Home Medications [No 06/06/16 06/06/16 Unknown History Reported Home Medications] Active Meds: Active Medications Acetaminophen (Tylenol) 650 mg PO Q4H PRN PRN Reason: Pain MILD(1-3)/Fever >100.5/ZAPATA Albuterol (Proventil) 2.5 mg IH Q6HRT PRN PRN Reason: Wheezing Bisacodyl (Dulcolax) 10 mg [place] QDAY PRN PRN Reason: Constipation unrelieved by MOM Enoxaparin Sodium (Lovenox) 40 mg SUB-Q QDAY@2200 MELI Piperacillin Sod/Tazobactam Sod (Zosyn/Ns 4.5gm/100ml) 4.5 gm in 100 mls @ 200 mls/hr IV Q6HR MELI PRN Reason: Protocol Last Admin: 06/08/16 13:16 Dose: 200 mls/hr Sodium Chloride (Nacl 0.9% 1000 Ml) 1,000 mls @ 125 mls/hr IV DIRECT MELI Last Admin: 06/07/16 01:13 Dose: 83 mls/hr Vancomycin HCl 1,750 mg/ (Sodium Chloride) 535 mls @ 333.333 mls/hr IV Q8HR MELI Magnesium Hydroxide (Milk Of Magnesia) 30 ml PO Q4H PRN PRN Reason: Constipation Nicotine (Habitrol) 21 mg TD QDAY [facility] Last Admin: 06/08/16 10:04 Dose: 21 mg Ondansetron HCl (Zofran) 4 mg IV Q4H PRN PRN Reason: Nausea And Vomiting Pantoprazole Sodium (Protonix) 40 mg PO QDAY [facility] Vancomycin HCl (Vancomycin Pharmacy To Dose) 1 each IV PKCONSULT MELI PRN Reason: Protocol Past psychiatric history - Past Medical History Past Medical History: other (Tooth Abcess) Past Surgical History: No surgical history - past Psychiatric treatment and history psychiatric treatment history: Denies a psy hx, but fam hx of schizophrenia and bipolar - Social History Social history: lives with family (GED, ), smoking Mental Status Exam - Vital signs Last Vital Signs Temp 100.2 F H 06/08/16 17:00 Pulse 78 06/08/16 17:00 Resp 20 06/08/16 17:00 BP 166/75 06/08/16 17:00 Pulse Ox 96 06/08/16 12:42 - Exam Narrative exam: ROS (-) depression, (-) psychosis MSE: Appearance: calm, cooperative Behavior: good eye contact Speech: regular rate and tone Mood: "not depressed" Affect: mood congruent Thought Process: linear Thought Content: denies SI/HI's and AVH's Motor Activity: ambulatory Cognition: A/O x3 Insight: fair Judgment: fair Results Result Diagrams: 06/06/16 11:12 06/06/16 11:12 Abnormal lab results 06/08/16 Range/Units 11:17 Vancomycin Trough 2.3 L (5.0-20.0) ug/mL All other labs normal. Assessment and Plan Assessment and plan: Impression: Sepsis. 35-year-old male presents to the emergency Department with family for psychiatric evaluation. His girlfriend states the patient has been having hallucinations for the past 3 days. Today patient is calm and cooperative during assessment. He stated along with his girlfriend that his tooth has been giving him problems for a year. Per his girlfriend, patient was hearing voices and talking to the wall at their home before his admission to [facility]. His medical diagnosis was sepsis once he was admitted. After receiving IV antibiotic treatment, patient presentation improved per his girlfriend. Mild tremors noted. DD: Encephalopathy Recommendation/Plan: Rescind 1013. Will continue to follow patient until discharge.
[2016-06-08] MEDS ORDERED: LOVENOX SUB-Q SCH (22:00)
[2016-06-08] MEDS: VANCOMYCIN 1,750 MG in NACL 0.9% 500 ML 500 ML IV SCH (22:37)
[2016-06-09] MEDS: ZOSYN/NS 4.5GM/100ML 4.5 GM/100 ML VIAL IV SCH ×2 (00:53→05:42)
[2016-06-09] MEDS: VANCOMYCIN 1,750 MG in NACL 0.9% 500 ML 500 ML IV SCH (06:35)
[2016-06-09 06:38] LABS: Hematocrit 38.4 % (35.5-45.6); Hemoglobin 12.8 gm/dl (11.8-15.2); Mean Corpuscular HGB Conc 33 % (32-34); Mean Corpuscular Hemoglobin 29 pg (28-32); Mean Corpuscular Volume 88 fl (84-94); Platelet Count 262 K/mm3 (140-440); Red Blood Count 4.36 M/mm3 (3.65-5.03); Red Cell Distribution Width 13.6 % (13.2-15.2)
[2016-06-09 06:56] LABS: Anion Gap 17 mmol/L; BUN/Creatinine Ratio 13.33; Blood Urea Nitrogen 12 mg/dL (9-20); Calcium 8.4 mg/dL (8.4-10.2); Carbon Dioxide 24 mmol/L (22-30); Chloride 104.4 mmol/L (98-107); Glucose 86 mg/dL (75-100); Potassium 3.5 mmol/L (3.6-5.0); Sodium 142 mmol/L (137-145)
[2016-06-09 07:51] VITALS: BP 144/81
--- NOTE | 2016-06-09 08:50 | Progress Note ---
Subjective - Reason for Consult Consult date: 06/09/16 Reason for consult: Psychiatry Follow-up - Chief Complaint Chief complaint: "I believe I'm getting better" 35-year-old male presents to the emergency Department with family for psychiatric evaluation. Today patient is calm, cooperative with a linear thought process. He states sleeping well last night with no complaints of pain. I noticed during out conversation patient would drool. He stated the drooling started a couple of days ago. His girlfriend confirmed that. He denies SI/HI's, AVH's, depression or a poor appetite. Mental Status Exam - Vital signs Last Vital Signs Temp 98.1 F 06/09/16 07:45 Pulse 79 06/09/16 07:45 Resp 16 06/09/16 07:45 BP 144/81 06/09/16 07:45 Pulse Ox 98 06/09/16 07:45 - Exam Narrative exam: MSE: Appearance: calm, cooperative Behavior: good eye contact Speech: regular rate and tone Mood: "I om okay" Affect: mood congruent Thought Process: linear Thought Content: denies SI/HI's and AVH's Motor Activity: lying in bed Cognition: A/O x3 Insight: fair Judgment: fair Assessment and Plan Impression: 35-year-old male presents to the emergency Department with family for psychiatric evaluation. Today patient is calm, cooperative with a linear thought process. He states sleeping well last night with no complaints of pain. I noticed during out conversation, patient would drool. He stated the drooling started a couple of days ago. His girlfriend confirmed that. Informed the assigned RN about patient drooling. Recommendation/Plan: Continue to follow patient patient until discharge.
[2016-06-09] MEDS ORDERED: PROTONIX PO SCH (10:00)
--- NOTE | 2016-06-09 10:29 | Discharge Summary ---
Providers - Providers Date of Admission: 06/06/16 14:23 Date of discharge: 06/09/16 Attending physician: MICHELLE ANTONIO MD 06/08/16 10:25 Consult to Mental Health [CONS] Stat Reason For Exam: schizo, ams Place consult to:: [place] Notified:: no Primary care physician: RN EMBEDDED Hospitalization Reason for admission: sepsis Condition: Stable Hospital course: Patient is a 35-year-old man with history of tobacco dependency, bipolar and schizophrenia who presents to emergency department with altered mental status. Patient was waiting for mental health evaluation but he was having fevers and elevated white blood cell count therefore he was admitted to the hospital for possible sepsis. There is a prior history of patient being giving antibiotics for a tooth infection 5 days ago at another emergency department. Chest x-ray is negative. CT head unremarkable. Spell that the infection was coming from the tooth. Patient's WBC improved. He was subsequently seen by psychiatry and rescinded the 1013. His clinically stable at this time his father is present in the room along with his spouse. They're all agreeable to the patient is stable to discharge and would like him to be discharged to [facility]. I reviewed all the cultures no other group at admission the repeat fever low- grade yesterday but this has resolved today. Was switched to clindamycin and I have recommended a stress to the family the need to follow up with a dentist outpatient for further evaluation. Patient and family verbalized understanding. Discharge diagnosis -Sepsis most likely due to oral abscess from tooth infection -Dental abscess -Acute encephalopathy -Gastroenteritis associated nausea or vomiting -Bipolar and schizophrenia Disposition: DISCHARGED TO HOME OR SELFCARE Time spent for discharge: 35 mins Core Measure Documentation - Palliative Care Palliative Care/ Comfort Measures: Not Applicable - Core Measures Any of the following diagnoses?: none - VTE Discharge Requirements Deep Vein Thrombosis/Pulmonary Embolism Present on Admission: No Exam - Physical Exam Narrative exam: VITAL SIGNS: Reviewed. GENERAL: The patient appeared well nourished and normally developed. Vital signs as documented. HEAD: No signs of head trauma. EYES: Pupils are equal. Extraocular motions intact. EARS: Hearing grossly intact. MOUTH: Oropharynx is normal. NECK: No adenopathy, no JVD. CHEST: Chest with clear breath sounds bilaterally. No wheezes, rales, or rhonchi. CARDIAC: Regular rate and rhythm. S1 and S2, without murmurs, gallops, or rubs. VASCULAR: No Edema. Peripheral pulses normal and equal in all extremities. ABDOMEN: Soft, without detectable tenderness. No sign of distention. No rebound or guarding, and no masses palpated. Bowel Sounds normal. MUSCULOSKELETAL: Good range of motion of all major joints. Extremities without clubbing, cyanosis or edema. NEUROLOGIC EXAM: Alert and oriented x 3. No focal sensory or strength deficits. Speech normal. Follows commands. PSYCHIATRIC: Mood apprehensive SKIN: No rash or lesions. - Constitutional Vitals: Temp Pulse Resp BP Pulse Ox 98.1 F 79 16 144/81 98 06/09/16 07:45 06/09/16 07:45 06/09/16 07:45 06/09/16 07:45 06/09/16 07:45 Plan Activity: advance as tolerated, fall precautions Special Instructions: record daily BP diary Additional Instructions: must follow with a dentisit within a week from discharge Follow up with: PRIMARY MD JOSE GUADALUPE [Primary Care Provider] - 3-5 Days AUSTIN PINZON MD [Staff Physician] - 7 Days Prescriptions: Clindamycin [Clindamycin CAP] 450 mg PO TID #21 capsule Nicotine [Habitrol] 21 mg TD QDAY #30 patch
[2016-06-09] MEDS: HABITROL TD SCH (10:54)
[2016-06-09] MEDS ORDERED: CLEOCIN PO SCH (14:00)
== END 2016-06-09 12:30 | disposition home or self-care (01) | DRG 871 ==
LOC: ED 13:55 → EEVIPCON 13:55 → 3A 06-06 14:23
PROVIDERS: ADMIT Internal Medicine; ATTEND Internal Medicine
DX: A41.9 Sepsis, unspecified organism (principal); G93.40 Encephalopathy, unspecified; F17.200 Nicotine dependence, unspecified, uncomplicated; F29 Unspecified psychosis not due to a substance or known physiological condition; F20.9 Schizophrenia, unspecified; F31.9 Bipolar disorder, unspecified; Z88.8 Allergy status to other drugs, medicaments and biological substances; K04.7 Periapical abscess without sinus; K52.9 Noninfective gastroenteritis and colitis, unspecified
CPT/HCPCS: 36415; 70450; 71010; 74000; 80048; 80053; 80074; 80202; 80307; 80320; 81001; 82140; 82270; 82550; 82553; 82805; 82962; 83735; 84484; 85025; 85027; 85610; 85730; 86140; 87040; 87045; 87086; 87493; 96365; 96367; G0480; J0696; J1650; J1956; J2405; J2543; J3370; J7030; J7040; J7050